=== PATIENT | female | born 1960 | race Caucasian/White ===

== ENCOUNTER 2024-10-06 07:57 | Outpatient (CLI) | payer MEDICARE, BC, SELFPAY ==
--- NOTE | 2024-10-06 08:15 | CRLHL7_ITS ---
For Patients: As a result of the Century Cures Act, medical imaging exams and procedure reports are released immediately into your electronic medical record. You may view this report before your referring provider. If you have questions, please contact your health care provider. ULTRASOUND-GUIDED RIGHT BREAST BIOPSY AND POST-BIOPSY DIGITAL MAMMOGRAM FOR BIOPSY MARKER PLACEMENT CLINICAL HISTORY: Suspicious mass. COMPARISON STUDIES: 09/12/2024 TECHNIQUE: Real-time ultrasound with image documentation was used for targeting the breast lesion. Core biopsy specimens were obtained using an automated gun with a 14-gauge biopsy needle. Post-biopsy CC and ML digital mammograms were obtained to document position of the biopsy marker. CONSENT and TIME OUT: The procedure, risks, and alternatives were explained to the patient and a consent was signed. [place] Protocol was followed including pre-procedure verification that relevant information/documentation was available, reviewed and properly matched to the patient; consent accurate and complete; and equipment and supplies available. Time Out was conducted just prior to starting procedure to verify the four required elements: patient identity, correct side/site marked (if applicable), procedure, relevant images/results properly labeled and displayed (if applicable). PROCEDURE: The patient was positioned supine on the ultrasound table. The breast was prepped with ChloraPrep. 9 cc of 1 percent lidocaine used for local anesthesia. Core samples were obtained. A sterile metal biopsy clip was placed percutaneously to bruno the lesion position within the breast. The specimens were placed in 10% formalin and sent to the pathology department. Pressure was held on the biopsy site until all bleeding subsided. The skin incision was closed with Steri-Strips. An ice pack was positioned over the biopsy site. Post-biopsy instructions were reviewed with the patient, and a written copy was given to her. LATERALITY: RIGHT breast LESION: 1.8 cm solid angular hypoechoic mass at 10 o`clock, 5 cm from the nipple. SUSPICION FOR MALIGNANCY: High NUMBER OF SAMPLES: 5 BIOPSY CLIP SHAPE: Oval PROXIMITY OF CLIP TO TARGET: Within IMPRESSION: Ultrasound-guided RIGHT breast biopsy. When the pathology report is available, an addendum to this report will be made. ACR not applicable. Dictated by Sy Villegas MD @ 10/06/2024 10:37:59 AM [email or web address] RD/Dictated by: Sy Villegas MD @ 10/06/2024 10:38:00 AM (Electronically Signed)
--- NOTE | 2024-10-06 09:00 | CRLHL7_ITS ---
For Patients: As a result of the Century Cures Act, medical imaging exams and procedure reports are released immediately into your electronic medical record. You may view this report before your referring provider. If you have questions, please contact your health care provider. PLEASE SEE RIGHT BREAST ULTRASOUND-GUIDED BIOPSY OF SAME DAY. [email or web address] RD/Dictated by: Sy Villegas MD @ 10/06/2024 10:03:00 AM (Electronically Signed)
== END 2024-10-06 07:58 | disposition home or self-care (01) ==
PROVIDERS: PCP Family Medicine; Visit Provider Family Medicine
DX: N63.10 Unspecified lump in the right breast, unspecified quadrant (principal); C50.911 Malignant neoplasm of unspecified site of right female breast; R92.8 Other abnormal and inconclusive findings on diagnostic imaging of breast
CPT/HCPCS: 19083; 77065; 88305; 88341; 88342; 88360; 88361; 88377; A4648; A4649